=== PATIENT | female | born 1990 | race African-American/Black ===

== ENCOUNTER 2017-11-30 10:38 | Emergency (ER) | payer BC ==
--- NOTE | 2017-11-30 11:13 | ER Document Report ---
HPI - HPI Patient complains to provider of: Sore throat Pain Level: Denies Context: Patient is a 26-year-old healthy female complaining of headache, sore throat, dizziness and stuffy nose 4 days. Patient works at a [employer]. Reports symptoms started on and have progressively worsened. Patient has not taken any [id number] medications for her symptoms. Patient is afebrile. Her blood pressure is noted to be elevated today. Patient reports that her blood pressure is usually high but has not established with a primary care to further evaluate this. Patient is a non-smoker Associated Symptoms: Nonproductive cough, Headache, Hoarseness, Sinus pain/ drainage, Sore throat. denies: Chest pain, Hurts to breath, Leg swelling, Shortness of breath Exacerbated by: Denies Relieved by: Denies Similar symptoms previously: Yes Recently seen / treated by doctor: No - ROS Systems Reviewed and Negative: Yes All other systems reviewed and negative Past Medical History - General Information source: Patient - Social History Smoking Status: Never Smoker Frequency of alcohol use: None Drug Abuse: None Lives with: Family Family History: Reviewed & Not Pertinent - Medical History Medical History: Negative Vertical Provider Document - CONSTITUTIONAL Agree With Documented VS: Yes Exam Limitations: No Limitations General Appearance: No Apparent Distress, Obese - INFECTION CONTROL TRAVEL OUTSIDE OF THE [place] IN LAST 30 DAYS: No - HEENT HEENT: Atraumatic, PERRLA, Pharyngeal Tenderness, Pharyngeal Erythema. negative : Pharyngeal Exudate Notes: Positive effusion right tympanic membrane Sinuses are nontender - NECK Neck: Normal Inspection, Supple - RESPIRATORY Respiratory: Breath Sounds Normal, No Respiratory Distress - CARDIOVASCULAR Cardiovascular: Regular Rate, Regular Rhythm - GI/ABDOMEN Gastrointestinal: Abdomen Soft, Abdomen Non-Tender - MUSCULOSKELETAL/EXTREMETIES Musculoskeletal/Extremeties: MAEW - NEURO Level of Consciousness: Awake, Alert, Appropriate - DERM Integumentary: Warm, Dry, No Rash Course - Re-evaluation Re-evalutation: 11/30/17 11:10 History and physical are consistent with an acute upper respiratory viral infection. Patient showing no signs of sepsis or dehydration. Patient's blood pressure is elevated and this was brought to her attention. She is showing no signs of hypertensive crisis. Patient instructed to follow-up with her primary care for further evaluation of her blood pressure. Recommended for patient to take an [id number] antihistamine. A short course of oral steroids will be prescribed for symptom control. Home care, primary care follow-up and ED return precautions were discussed with the patient. Patient is agreeable with plan and stable for discharge - Vital Signs Vital signs: Temp Pulse Resp BP Pulse Ox 99.2 F 87 18 171/108 H 100 11/30/17 10:45 11/30/17 10:45 11/30/17 10:45 11/30/17 10:45 11/30/17 10:45 Discharge - Discharge Clinical Impression: Viral illness Condition: Stable Disposition: HOME, SELF-CARE Instructions: Acetaminophen, Sore Throat ([facility]), Viral Syndrome ([facility]), Steroid Medication Additional Instructions: Take medications as prescribed Recommend Mucinex D in addition to prescribed medication Rest and hydrate Work note for 2 days has been provided Patient established with a primary care to further evaluate your blood pressure Prescriptions: Prednisone 20 mg PO BID #16 tablet Forms: Elevated Blood Pressure, Return to Work
[2017-11-30 11:56] VITALS: BP 162/98
== END 2017-11-30 11:55 | disposition home or self-care (01) ==
LOC: ER 10:38
DX: B34.9 Viral infection, unspecified (principal); J02.9 Acute pharyngitis, unspecified; I10 Essential (primary) hypertension; R51 Headache; R42 Dizziness and giddiness; R09.81 Nasal congestion; R49.0 Dysphonia; R05 Cough; J34.89 Other specified disorders of nose and nasal sinuses
CPT/HCPCS: 87070; 87880; 99283

== ENCOUNTER → 2018-04-24 | Outpatient (CLI) | payer BC ==
[2018-04-24 10:45] LABS: ABSOLUTE BASOPHILS # (AUTO) 0.1 10^3/uL (0.0-0.2); ABSOLUTE EOSINOPHILS # (AUTO) 0.1 10^3/uL (0.0-0.6); ABSOLUTE LYMPHOCYTES (AUTO) 1.8 10^3/uL (0.5-4.7); ABSOLUTE MONOCYTES (AUTO) 0.3 10^3/uL (0.1-1.4); BASOPHILS % (AUTO) 0.9 % (0-2); EOSINOPHILS % (AUTO) 1.3 % (0-6); HEMATOCRIT 40.6 % (36.0-47.0); HEMOGLOBIN 14.2 g/dL (12.0-15.5); LYMPHOCYTES % (AUTO) 28.7 % (13-45); MEAN CORPUSCULAR HEMOGLOBIN 30.3 pg (27.0-33.4); MEAN CORPUSCULAR HGB CONC 35.1 g/dL (32.0-36.0); MEAN CORPUSCULAR VOLUME 86 fl (80-97); MONOCYTES % (AUTO) 5.4 % (3-13); PLATELET COUNT 355 10^3/uL (150-450); RED BLOOD COUNT 4.71 10^6/uL (3.72-5.28); RED CELL DISTRIBUTION WIDTH 12.3 % (11.5-14.0); SEGMENTED NEUTROPHILS % (AUTO) 63.7 % (42-78); TOTAL CELLS COUNTED % (AUTO) 100 %; WHITE BLOOD COUNT 6.2 10^3/uL (4.0-10.5)
[2018-04-24 10:49] LABS: APPEARANCE,URINE SLIGHTLY-CLOUDY; BILIRUBIN,URINE NEGATIVE (NEGATIVE); COLOR,URINE YELLOW; GLUCOSE, URINE NEGATIVE (NEGATIVE); KETONES,URINE NEGATIVE (NEGATIVE); LEUKOCYTE ESTERASE,URINE TRACE (NEGATIVE); NITRITE,URINE NEGATIVE (NEGATIVE); PROTEIN,URINE NEGATIVE (NEGATIVE); URINE SPECIFIC GRAVITY 1.018; UROBILINOGEN,URINE NEGATIVE mg/dL (<2.0)
[2018-04-24 11:03] LABS: ALANINE AMINOTRANSFERASE 23 U/L (9-52); ALBUMIN 4.4 g/dL (3.5-5.0); ALKALINE PHOSPHATASE 52 U/L (38-126); ANION GAP 9 (5-19); ASPARTATE AMINO TRANSFERASE 13 U/L (14-36); BILIRUBIN,DIRECT 0.2 mg/dL (0.0-0.4); BILIRUBIN,TOTAL 0.4 mg/dL (0.2-1.3); BLOOD UREA NITROGEN 12 mg/dL (7-20); CALCIUM 9.5 mg/dL (8.4-10.2); CARBON DIOXIDE 25 mmol/L (22-30); CHLORIDE 104 mmol/L (98-107); CHOLESTEROL 196.06 mg/dL (0-200); GLUCOSE 89 mg/dL (75-110); POTASSIUM 4.4 mmol/L (3.6-5.0); SODIUM 138.3 mmol/L (137-145); TOTAL PROTEIN 7.3 g/dL (6.3-8.2); TRIGLYCERIDES 104 mg/dL (<150)
[2018-04-24 11:14] LABS: DIRECT LDL 131 mg/dL (<100)
== END ==
LOC: OD 09:54
PROVIDERS: ATTEND Family Medicine
DX: R03.0 Elevated blood-pressure reading, without diagnosis of hypertension (principal)
CPT/HCPCS: 36415; 80053; 80061; 81001; 84443; 85025